=== PATIENT | male | born 1950 | race Caucasian/White ===

== ENCOUNTER 2021-05-30 21:44 | Emergency (ER) | payer OTHER ==
[2021-05-30 21:50] VITALS: BP 150/82; PULSE 72; TEMP 98.6; BMI 34.7
[2021-05-30 23:36] LABS: BASO % 0.7 % (0-2.0); EOS % 3.1 % (0-4.5); HEMATOCRIT 44.3 % (35.4-49); HEMOGLOBIN 15.3 GM/dL (11.7-16.9); LYMPH % 33.9 % (8-40); MCHC 34.6 g/dl (32.0-35.9); MEAN CELL VOLUME 86.7 fl (80-96); MEAN PLT VOLUME 9.3 fl (7.5-11.1); MONO % 9.8 % (3.8-10.2); NEUT % 52.5 % (42.8-82.8); PLATELET COUNT 205 10^3/uL (134-434); RBC 5.11 M/mm3 (4.00-5.60); RDW 14.7 % (11.9-15.9); WHITE BLOOD COUNT 9.2 K/mm3 (4.0-10.0)
[2021-05-30 23:37] LABS: INR 0.94 (0.83-1.09); PROTHROMBIN TIME (PATIENT) 11.5 SEC (9.7-13.0)
[2021-05-30 23:50] LABS: ALBUMIN 3.6 g/dl (3.4-5.0)
[2021-05-30 23:53] LABS: CALCIUM 8.6 mg/dL (8.5-10.1); CREATININE 0.8 mg/dL (0.55-1.3)
[2021-05-30 23:55] LABS: BILIRUBIN,TOTAL 0.4 mg/dL (0.2-1)
[2021-05-31 00:18] LABS: BLOOD UREA NITROGEN 17.9 mg/dL (7-18); TOT PROT 7.1 g/dl (6.4-8.2)
[2021-05-31] MEDS ORDERED: KETOROLAC TROMETHAMINE 30 MG/1 ML VIAL IVPUSH ONE (00:37)
[2021-05-31] MEDS ORDERED: KETOROLAC TROMETHAMINE 30 MG/1 ML VIAL ONE (00:38)
== END 2021-05-31 00:52 | disposition home or self-care (01) ==
LOC: JER 21:44 → JERFT 21:44 → JER 05-31 00:52
PROC: 3E0333Z Introduction of Anti-inflammatory into Peripheral Vein, Percutaneous Approach (ICD-10-PCS; principal; 2021-05-30)
DX: M79.671 Pain in right foot (principal); R22.41 Localized swelling, mass and lump, right lower limb
CPT/HCPCS: 36415; 73610-TC-RT-FY; 73630-TC-RT-FY; 80053; 85025; 85610; 93970-TC; 99285-25

== ENCOUNTER 2021-06-09 20:18 | Inpatient (IN) | payer OTHER ==
[2021-06-09] MEDS ORDERED: oxyCODONE HCL 5 MG TABLET PO ONE (23:29)
[2021-06-09 23:38] LABS: BASO % 1.1 % (0-2.0); EOS % 2.3 % (0-4.5); HEMATOCRIT 42.5 % (35.4-49); HEMOGLOBIN 14.2 GM/dL (11.7-16.9); LYMPH % 24.2 % (8-40); MCH 28.5 pg (25.7-33.7); MCHC 33.3 g/dl (32.0-35.9); MEAN CELL VOLUME 85.5 fl (80-96); MEAN PLT VOLUME 8.3 fl (7.5-11.1); MONO % 9.5 % (3.8-10.2); NEUT % 62.9 % (42.8-82.8); PLATELET COUNT 183 10^3/uL (134-434); RBC 4.97 M/mm3 (4.00-5.60); RDW 14.2 % (11.9-15.9); WHITE BLOOD COUNT 10.3 K/mm3 (4.0-10.0)
[2021-06-09] MEDS ORDERED: oxyCODONE HCL 5 MG TABLET ONE (23:41)
[2021-06-09 23:46] LABS: INR 1.07 (0.83-1.09)
[2021-06-10 00:01] LABS: ALBUMIN 3.6 g/dl (3.4-5.0); BLOOD UREA NITROGEN 14.3 mg/dL (7-18)
[2021-06-10 00:04] LABS: CREATININE 0.9 mg/dL (0.55-1.3)
[2021-06-10 00:05] LABS: BILIRUBIN,TOTAL 0.4 mg/dL (0.2-1)
[2021-06-10] MEDS ORDERED: ENOXAPARIN NA (PORCINE) 80 MG/0.8 ML DISP.SYRIN SQ ONE ×2 (01:52→16:39)
[2021-06-10] MEDS ORDERED: ENOXAPARIN NA (PORCINE) 120 MG/0.8 ML DISP.SYRIN SQ ONE (02:15)
[2021-06-10] MEDS ORDERED: ENOXAPARIN NA (PORCINE) 60 MG/0.6 ML DISP.SYRIN SQ ONE (02:33)
[2021-06-10] MEDS: SODIUM CHLORIDE 1,000 ML IV SCH (02:57)
[2021-06-10] MEDS ORDERED: VANCOMYCIN 1 GM in D5W (PRE-DOCKED) 1,000 MG/250 ML IVPB ONE (03:08)
[2021-06-10] MEDS ORDERED: VANCOMYCIN 1 GRAM (PRE-DOCKED) 1,000 MG/250 ML BAG IVPB ONE ×2 (04:23→04:28)
[2021-06-10] MEDS: ACETAMINOPHEN 325 MG TABLET (FP) PO PRN ×2 (05:45→23:03)
[2021-06-10 07:39] LABS: BASO % 0.7 % (0-2.0); EOS % 2.4 % (0-4.5); HEMATOCRIT 39.6 % (35.4-49); HEMOGLOBIN 13.5 GM/dL (11.7-16.9); LYMPH % 26.8 % (8-40); MCH 29.1 pg (25.7-33.7); MEAN CELL VOLUME 85.5 fl (80-96); MEAN PLT VOLUME 8.5 fl (7.5-11.1); MONO % 10.8 % (3.8-10.2); NEUT % 59.3 % (42.8-82.8); PLATELET COUNT 184 10^3/uL (134-434); RBC 4.64 M/mm3 (4.00-5.60); RDW 14.5 % (11.9-15.9); WHITE BLOOD COUNT 9.9 K/mm3 (4.0-10.0)
[2021-06-10 07:41] LABS: CHLORIDE 107 mmol/L (98-107); SODIUM 140 mmol/L (136-145)
[2021-06-10 07:45] LABS: GLUCOSE,RANDOM 108 mg/dL (74-106)
[2021-06-10 07:49] LABS: ALBUMIN 3.2 g/dl (3.4-5.0); CREATININE 0.9 mg/dL (0.55-1.3); PHOSPHOROUS 2.6 mg/dL (2.5-4.9)
[2021-06-10 07:50] LABS: ANION GAP 7 MMOL/L (8-16); BILIRUBIN,TOTAL 0.4 mg/dL (0.2-1); CO2 26 mmol/L (21-32); TOT PROT 6.6 g/dl (6.4-8.2)
[2021-06-10 07:51] LABS: CALCIUM 8.2 mg/dL (8.5-10.1)
[2021-06-10 07:52] LABS: ALK PHOS 75 U/L (45-117); SGOT/AST 18 U/L (15-37); SGPT/ALT 30 U/L (13-61)
[2021-06-10] MEDS ORDERED: oxyCODONE HCL 5 MG TABLET PO PRN (09:38)
[2021-06-10] MEDS ORDERED: LIDOCAINE 5% TOPICAL PATCH ONE (11:38)
[2021-06-10] MEDS ORDERED: oxyCODONE HCL 5 MG TABLET ONE ×4 (11:38→22:56)
[2021-06-10] MEDS: LIDOCAINE 5% TOPICAL PATCH TP SCH (11:45)
[2021-06-10] MEDS: oxyCODONE HCL 5 MG TABLET PO PRN ×3 (11:46→23:02)
[2021-06-10] MEDS ORDERED: ENOXAPARIN NA (PORCINE) 40 MG/0.4 ML DISP.SYRIN SQ ONE (16:38)
[2021-06-10] MEDS: ENOXAPARIN NA (PORCINE) 120 MG/0.8 ML DISP.SYRIN SQ SCH (16:40)
[2021-06-10 22:34] LABS: URINE APPEARANCE CLEAR; URINE BILIRUBIN NEGATIVE (NEGATIVE); URINE COLOR YELLOW; URINE GLUCOSE (UA) NEGATIVE (NEGATIVE); URINE KETONE NEGATIVE (NEGATIVE); URINE LEUK ESTERASE NEGATIVE (NEGATIVE); URINE NITRITE NEGATIVE (NEGATIVE); URINE PROTEIN NEGATIVE (NEGATIVE)
[2021-06-10] MEDS ORDERED: ACETAMINOPHEN 325 MG TABLET (FP) ONE (22:56)
[2021-06-11 02:59] VITALS: BMI 36.3
[2021-06-11] MEDS: ENOXAPARIN NA (PORCINE) 120 MG/0.8 ML DISP.SYRIN SQ SCH ×3 (03:22→22:48)
[2021-06-11] MEDS: SODIUM CHLORIDE 1,000 ML IV SCH (03:22)
[2021-06-11] MEDS: oxyCODONE HCL 5 MG TABLET PO PRN ×4 (04:58→22:47)
[2021-06-11] MEDS: ACETAMINOPHEN 325 MG TABLET (FP) PO PRN ×2 (05:03→16:02)
[2021-06-11 06:20] LABS: BASO % 0.8 % (0-2.0); EOS % 3.1 % (0-4.5); HEMATOCRIT 39.4 % (35.4-49); HEMOGLOBIN 13.3 GM/dL (11.7-16.9); LYMPH % 22.8 % (8-40); MCH 28.9 pg (25.7-33.7); MCHC 33.7 g/dl (32.0-35.9); MEAN CELL VOLUME 85.8 fl (80-96); MEAN PLT VOLUME 8.4 fl (7.5-11.1); MONO % 10.6 % (3.8-10.2); NEUT % 62.7 % (42.8-82.8); PLATELET COUNT 181 10^3/uL (134-434); RBC 4.59 M/mm3 (4.00-5.60); RDW 14.7 % (11.9-15.9); WHITE BLOOD COUNT 8.9 K/mm3 (4.0-10.0)
[2021-06-11 06:47] LABS: CALCIUM 7.4 mg/dL (8.5-10.1)
[2021-06-11 06:48] LABS: ALBUMIN 2.8 g/dl (3.4-5.0); BLOOD UREA NITROGEN 11.6 mg/dL (7-18)
[2021-06-11 06:51] LABS: CREATININE 0.8 mg/dL (0.55-1.3)
[2021-06-11 06:52] LABS: BILIRUBIN,TOTAL 0.3 mg/dL (0.2-1)
[2021-06-11 06:53] LABS: TOT PROT 5.9 g/dl (6.4-8.2)
[2021-06-11 08:57] LABS: INR 1.01 (0.83-1.09); PROTHROMBIN TIME (PATIENT) 12.4 SEC (9.7-13.0)
[2021-06-11] MEDS ORDERED: POTASSIUM CHLORIDE TABS 20 MEQ TABLET.ER (FP) PO ONE (09:00)
[2021-06-11] MEDS: DULoxetine HCL 30 MG CAPSULE.DR PO SCH (09:42)
[2021-06-11] MEDS: EZETIMIBE 10 MG TABLET (FP) PO SCH (09:42)
[2021-06-11] MEDS ORDERED: oxyCODONE HCL 5 MG TABLET PO PRN (10:18)
[2021-06-11] MEDS: LIDOCAINE PATCH REMOVAL MC SCH ×2 (11:27→22:49)
[2021-06-11] MEDS: WARFARIN NA 10 MG TABLET PO SCH (18:15)
[2021-06-11] MEDS: LIDOCAINE 5% TOPICAL PATCH TP SCH (18:21)
[2021-06-11] MEDS ORDERED: PT OWN MED DRAWER 7, Y5N ONE (22:05)
[2021-06-12] MEDS: oxyCODONE HCL 5 MG TABLET PO PRN ×5 (05:16→22:05)
[2021-06-12 06:30] LABS: BASO % 0.9 % (0-2.0); EOS % 2.9 % (0-4.5); HEMATOCRIT 39.7 % (35.4-49); HEMOGLOBIN 13.3 GM/dL (11.7-16.9); LYMPH % 26.2 % (8-40); MCH 28.7 pg (25.7-33.7); MCHC 33.5 g/dl (32.0-35.9); MEAN CELL VOLUME 85.8 fl (80-96); MEAN PLT VOLUME 8.2 fl (7.5-11.1); MONO % 10.3 % (3.8-10.2); NEUT % 59.7 % (42.8-82.8); PLATELET COUNT 203 10^3/uL (134-434); RBC 4.63 M/mm3 (4.00-5.60); RDW 14.4 % (11.9-15.9); WHITE BLOOD COUNT 8.2 K/mm3 (4.0-10.0)
[2021-06-12 06:46] LABS: INR 1.02 (0.83-1.09); PROTHROMBIN TIME (PATIENT) 12.3 SEC (9.7-13.0)
[2021-06-12 06:54] LABS: CALCIUM 7.9 mg/dL (8.5-10.1)
[2021-06-12 06:55] LABS: BLOOD UREA NITROGEN 8.4 mg/dL (7-18); MAGNESIUM 1.9 mg/dL (1.8-2.4)
[2021-06-12 06:58] LABS: CREATININE 0.7 mg/dL (0.55-1.3)
[2021-06-12 06:59] LABS: BILIRUBIN,TOTAL 0.3 mg/dL (0.2-1)
[2021-06-12 07:00] LABS: TOT PROT 6.2 g/dl (6.4-8.2)
[2021-06-12] MEDS ORDERED: PT OWN MED DRAWER 7, Y5N ONE ×2 (10:00→22:02)
[2021-06-12] MEDS: DULoxetine HCL 30 MG CAPSULE.DR PO SCH (10:03)
[2021-06-12] MEDS: LIDOCAINE 5% TOPICAL PATCH TP SCH (10:04)
[2021-06-12] MEDS: EZETIMIBE 10 MG TABLET (FP) PO SCH (10:04)
[2021-06-12] MEDS: ENOXAPARIN NA (PORCINE) 120 MG/0.8 ML DISP.SYRIN SQ SCH ×2 (10:04→23:17)
[2021-06-12 12:42] LABS: N-TERMINAL BNP 82.9 pg/ml (5-125)
[2021-06-12] MEDS: ACETAMINOPHEN 325 MG TABLET (FP) PO PRN ×2 (14:00→23:17)
[2021-06-12] MEDS: WARFARIN NA 10 MG TABLET PO SCH (18:11)
[2021-06-12] MEDS: LIDOCAINE PATCH REMOVAL MC SCH (22:10)
[2021-06-13] MEDS: oxyCODONE HCL 5 MG TABLET PO PRN ×5 (02:11→20:01)
[2021-06-13 07:24] LABS: BASO % 0.7 % (0-2.0); EOS % 3.8 % (0-4.5); HEMOGLOBIN 12.9 GM/dL (11.7-16.9); MCH 28.7 pg (25.7-33.7); MCHC 33.9 g/dl (32.0-35.9); MEAN CELL VOLUME 84.6 fl (80-96); MEAN PLT VOLUME 8.5 fl (7.5-11.1); MONO % 11.5 % (3.8-10.2); PLATELET COUNT 206 10^3/uL (134-434); RBC 4.49 M/mm3 (4.00-5.60); WHITE BLOOD COUNT 7.1 K/mm3 (4.0-10.0)
[2021-06-13 07:34] LABS: INR 1.07 (0.83-1.09); PROTHROMBIN TIME (PATIENT) 13.2 SEC (9.7-13.0)
[2021-06-13 07:42] LABS: ALBUMIN 3.1 g/dl (3.4-5.0); BLOOD UREA NITROGEN 9.7 mg/dL (7-18); CALCIUM 8.5 mg/dL (8.5-10.1); MAGNESIUM 2.2 mg/dL (1.8-2.4)
[2021-06-13 07:46] LABS: CREATININE 0.8 mg/dL (0.55-1.3)
[2021-06-13 07:47] LABS: BILIRUBIN,TOTAL 0.3 mg/dL (0.2-1)
[2021-06-13] MEDS: DULoxetine HCL 30 MG CAPSULE.DR PO SCH (09:08)
[2021-06-13] MEDS: EZETIMIBE 10 MG TABLET (FP) PO SCH (09:09)
[2021-06-13] MEDS ORDERED: PT OWN MED DRAWER 7, Y5N ONE (09:10)
[2021-06-13] MEDS: ACETAMINOPHEN 325 MG TABLET (FP) PO PRN ×3 (09:15→21:08)
[2021-06-13] MEDS: LIDOCAINE 5% TOPICAL PATCH TP SCH (09:20)
[2021-06-13] MEDS: ENOXAPARIN NA (PORCINE) 120 MG/0.8 ML DISP.SYRIN SQ SCH ×2 (10:12→22:29)
[2021-06-13] MEDS: WARFARIN NA 10 MG TABLET PO SCH (17:45)
[2021-06-13] MEDS: LIDOCAINE PATCH REMOVAL MC SCH (22:34)
[2021-06-14] MEDS: oxyCODONE HCL 5 MG TABLET PO PRN ×5 (00:11→20:10)
[2021-06-14] MEDS: ACETAMINOPHEN 325 MG TABLET (FP) PO PRN ×3 (04:51→22:19)
[2021-06-14] MEDS: LIDOCAINE 5% TOPICAL PATCH TP SCH (09:53)
[2021-06-14] MEDS: DULoxetine HCL 30 MG CAPSULE.DR PO SCH (09:53)
[2021-06-14] MEDS: EZETIMIBE 10 MG TABLET (FP) PO SCH (09:53)
[2021-06-14 11:51] LABS: BASO % 0.9 % (0-2.0); EOS % 3.9 % (0-4.5); HEMATOCRIT 40.6 % (35.4-49); HEMOGLOBIN 13.6 GM/dL (11.7-16.9); LYMPH % 25.8 % (8-40); MCH 28.5 pg (25.7-33.7); MCHC 33.4 g/dl (32.0-35.9); MEAN CELL VOLUME 85.4 fl (80-96); MEAN PLT VOLUME 8.1 fl (7.5-11.1); MONO % 12.2 % (3.8-10.2); NEUT % 57.2 % (42.8-82.8); PLATELET COUNT 235 10^3/uL (134-434); RBC 4.76 M/mm3 (4.00-5.60); RDW 14.3 % (11.9-15.9); WHITE BLOOD COUNT 7.1 K/mm3 (4.0-10.0)
[2021-06-14 11:56] LABS: INR 1.27 (0.83-1.09); PROTHROMBIN TIME (PATIENT) 14.9 SEC (9.7-13.0)
[2021-06-14 12:11] LABS: CALCIUM 8.3 mg/dL (8.5-10.1)
[2021-06-14 12:12] LABS: BLOOD UREA NITROGEN 14.9 mg/dL (7-18); MAGNESIUM 2.3 mg/dL (1.8-2.4)
[2021-06-14 12:15] LABS: CREATININE 0.8 mg/dL (0.55-1.3)
[2021-06-14 12:17] LABS: BILIRUBIN,TOTAL 0.3 mg/dL (0.2-1); TOT PROT 6.4 g/dl (6.4-8.2)
[2021-06-14] MEDS: ENOXAPARIN NA (PORCINE) 120 MG/0.8 ML DISP.SYRIN SQ SCH ×2 (12:21→22:19)
[2021-06-14] MEDS: WARFARIN NA 10 MG TABLET PO SCH (18:14)
[2021-06-14] MEDS ORDERED: PT OWN MED DRAWER 7, Y5N ONE (22:18)
[2021-06-14] MEDS: LIDOCAINE PATCH REMOVAL MC SCH (23:26)
[2021-06-15] MEDS: oxyCODONE HCL 5 MG TABLET PO PRN ×4 (00:22→20:16)
[2021-06-15] MEDS: ACETAMINOPHEN 325 MG TABLET (FP) PO PRN (04:29)
[2021-06-15] MEDS ORDERED: PT OWN MED DRAWER 7, Y5N ONE (09:01)
[2021-06-15] MEDS: EZETIMIBE 10 MG TABLET (FP) PO SCH (09:04)
[2021-06-15] MEDS: DULoxetine HCL 30 MG CAPSULE.DR PO SCH (09:04)
[2021-06-15] MEDS: ENOXAPARIN NA (PORCINE) 120 MG/0.8 ML DISP.SYRIN SQ SCH (09:06)
[2021-06-15] MEDS: LIDOCAINE 5% TOPICAL PATCH TP SCH (09:26)
[2021-06-15 10:38] LABS: BASO % 0.8 % (0-2.0); EOS % 4.4 % (0-4.5); HEMATOCRIT 39.5 % (35.4-49); HEMOGLOBIN 13.4 GM/dL (11.7-16.9); LYMPH % 28.8 % (8-40); MCH 28.9 pg (25.7-33.7); MCHC 33.8 g/dl (32.0-35.9); MEAN CELL VOLUME 85.3 fl (80-96); MEAN PLT VOLUME 8.3 fl (7.5-11.1); MONO % 10.9 % (3.8-10.2); NEUT % 55.1 % (42.8-82.8); PLATELET COUNT 259 10^3/uL (134-434); RBC 4.63 M/mm3 (4.00-5.60); RDW 14.3 % (11.9-15.9); WHITE BLOOD COUNT 6.5 K/mm3 (4.0-10.0)
[2021-06-15 10:45] LABS: INR 1.65 (0.83-1.09); PROTHROMBIN TIME (PATIENT) 18.6 SEC (9.7-13.0)
[2021-06-15 10:50] LABS: CALCIUM 8.1 mg/dL (8.5-10.1)
[2021-06-15 10:51] LABS: ALBUMIN 2.9 g/dl (3.4-5.0); MAGNESIUM 1.9 mg/dL (1.8-2.4)
[2021-06-15 10:54] LABS: CREATININE 0.8 mg/dL (0.55-1.3)
[2021-06-15 10:56] LABS: BILIRUBIN,TOTAL 0.3 mg/dL (0.2-1); TOT PROT 6.2 g/dl (6.4-8.2)
[2021-06-15] MEDS ORDERED: oxyCODONE HCL 5 MG TABLET PO PRN (12:56)
[2021-06-15] MEDS: ACETAMINOPHEN 500 MG TABLET (FP) PO SCH ×2 (13:30→21:23)
[2021-06-15] MEDS: CYCLOBENZAPRINE HCL 10 MG TABLET (FP) PO SCH ×2 (13:30→21:23)
[2021-06-15] MEDS: GABAPENTIN 300 MG CAPSULE PO SCH ×2 (13:30→21:23)
[2021-06-15] MEDS: DOCUSATE SODIUM 100 MG CAPSULE (FP) PO SCH ×2 (13:35→21:22)
[2021-06-15] MEDS: APIXABAN 5 MG TABLET PO SCH (21:22)
[2021-06-15] MEDS: LIDOCAINE PATCH REMOVAL MC SCH (22:42)
[2021-06-16] MEDS: oxyCODONE HCL 5 MG TABLET PO PRN ×4 (03:16→22:12)
[2021-06-16] MEDS: DOCUSATE SODIUM 100 MG CAPSULE (FP) PO SCH ×3 (06:06→23:03)
[2021-06-16] MEDS: CYCLOBENZAPRINE HCL 10 MG TABLET (FP) PO SCH ×3 (06:07→22:12)
[2021-06-16] MEDS: ACETAMINOPHEN 500 MG TABLET (FP) PO SCH (06:07)
[2021-06-16] MEDS: GABAPENTIN 300 MG CAPSULE PO SCH ×3 (06:07→22:11)
[2021-06-16 07:32] LABS: BASO % 0.7 % (0-2.0); EOS % 3.9 % (0-4.5); HEMATOCRIT 42.5 % (35.4-49); HEMOGLOBIN 14.2 GM/dL (11.7-16.9); LYMPH % 31.1 % (8-40); MCH 28.5 pg (25.7-33.7); MCHC 33.4 g/dl (32.0-35.9); MEAN CELL VOLUME 85.5 fl (80-96); MEAN PLT VOLUME 8.3 fl (7.5-11.1); MONO % 9.9 % (3.8-10.2); NEUT % 54.4 % (42.8-82.8); PLATELET COUNT 269 10^3/uL (134-434); RBC 4.97 M/mm3 (4.00-5.60); RDW 14.1 % (11.9-15.9); WHITE BLOOD COUNT 7.2 K/mm3 (4.0-10.0)
[2021-06-16 07:49] LABS: ALBUMIN 3.1 g/dl (3.4-5.0); BLOOD UREA NITROGEN 15.8 mg/dL (7-18); CALCIUM 8.9 mg/dL (8.5-10.1); MAGNESIUM 2.1 mg/dL (1.8-2.4)
[2021-06-16 07:53] LABS: BILIRUBIN,TOTAL 0.5 mg/dL (0.2-1); CREATININE 0.7 mg/dL (0.55-1.3)
[2021-06-16 07:54] LABS: TOT PROT 6.5 g/dl (6.4-8.2)
[2021-06-16] MEDS: APIXABAN 5 MG TABLET PO SCH ×2 (09:52→22:11)
[2021-06-16] MEDS: DULoxetine HCL 30 MG CAPSULE.DR PO SCH (09:53)
[2021-06-16] MEDS: EZETIMIBE 10 MG TABLET (FP) PO SCH (09:53)
[2021-06-16] MEDS: LIDOCAINE 5% TOPICAL PATCH TP SCH ×2 (09:58→10:00)
[2021-06-16 15:52] LABS: BILIRUBIN,DIRECT 0.1 mg/dL (0.0-0.2)
[2021-06-16 20:10] LABS: ALBUMIN 3.2 g/dl (3.4-5.0)
[2021-06-16 20:12] LABS: BILIRUBIN,DIRECT 0.1 mg/dL (0.0-0.2)
[2021-06-16 20:15] LABS: BILIRUBIN,TOTAL 0.1 mg/dL (0.2-1); TOT PROT 6.6 g/dl (6.4-8.2)
[2021-06-16] MEDS: LIDOCAINE PATCH REMOVAL MC SCH (22:13)
[2021-06-17] MEDS: DOCUSATE SODIUM 100 MG CAPSULE (FP) PO SCH ×4 (05:40→21:24)
[2021-06-17] MEDS: GABAPENTIN 300 MG CAPSULE PO SCH ×3 (05:41→13:59)
[2021-06-17] MEDS: CYCLOBENZAPRINE HCL 10 MG TABLET (FP) PO SCH (05:41)
[2021-06-17 07:36] LABS: CALCIUM 8.6 mg/dL (8.5-10.1)
[2021-06-17 07:37] LABS: ALBUMIN 3.4 g/dl (3.4-5.0); BLOOD UREA NITROGEN 15.7 mg/dL (7-18); MAGNESIUM 2.2 mg/dL (1.8-2.4)
[2021-06-17 07:41] LABS: CREATININE 0.8 mg/dL (0.55-1.3)
[2021-06-17 07:42] LABS: BILIRUBIN,TOTAL 0.2 mg/dL (0.2-1)
[2021-06-17 07:49] LABS: BASO % 0.8 % (0-2.0); EOS % 3.1 % (0-4.5); HEMATOCRIT 42.3 % (35.4-49); HEMOGLOBIN 14.6 GM/dL (11.7-16.9); MCH 29.3 pg (25.7-33.7); MCHC 34.4 g/dl (32.0-35.9); MEAN CELL VOLUME 85.3 fl (80-96); MEAN PLT VOLUME 8.5 fl (7.5-11.1); MONO % 9.1 % (3.8-10.2); PLATELET COUNT 310 10^3/uL (134-434); RBC 4.96 M/mm3 (4.00-5.60); RDW 14.3 % (11.9-15.9); WHITE BLOOD COUNT 9.7 K/mm3 (4.0-10.0)
[2021-06-17] MEDS: oxyCODONE HCL 5 MG TABLET PO PRN ×3 (08:46→20:57)
[2021-06-17] MEDS: EZETIMIBE 10 MG TABLET (FP) PO SCH (10:48)
[2021-06-17] MEDS: APIXABAN 5 MG TABLET PO SCH ×2 (10:48→21:23)
[2021-06-17] MEDS: DULoxetine HCL 30 MG CAPSULE.DR PO SCH (10:48)
[2021-06-17] MEDS: LIDOCAINE 5% TOPICAL PATCH TP SCH (10:49)
[2021-06-17 12:13] LABS: BILIRUBIN,DIRECT 0.1 mg/dL (0.0-0.2)
[2021-06-17] MEDS: LIDOCAINE PATCH REMOVAL MC SCH (21:25)
[2021-06-17 21:30] LABS: ALBUMIN 3.5 g/dl (3.4-5.0)
[2021-06-17 21:33] LABS: BILIRUBIN,DIRECT 0.1 mg/dL (0.0-0.2)
[2021-06-17 21:35] LABS: BILIRUBIN,TOTAL 0.2 mg/dL (0.2-1); TOT PROT 7.2 g/dl (6.4-8.2)
[2021-06-18] MEDS: oxyCODONE HCL 5 MG TABLET PO PRN ×4 (03:05→22:23)
[2021-06-18] MEDS: DOCUSATE SODIUM 100 MG CAPSULE (FP) PO SCH ×3 (06:09→22:23)
[2021-06-18 08:01] LABS: INR 1.5 (0.83-1.09); PROTHROMBIN TIME (PATIENT) 16.9 SEC (9.7-13.0)
[2021-06-18 08:02] LABS: EOS % 2.7 % (0-4.5); HEMATOCRIT 39.1 % (35.4-49); HEMOGLOBIN 13.5 GM/dL (11.7-16.9); LYMPH % 27.2 % (8-40); MCH 29.5 pg (25.7-33.7); MCHC 34.6 g/dl (32.0-35.9); MEAN CELL VOLUME 85.3 fl (80-96); MEAN PLT VOLUME 8.3 fl (7.5-11.1); NEUT % 59.1 % (42.8-82.8); PLATELET COUNT 303 10^3/uL (134-434); RBC 4.59 M/mm3 (4.00-5.60); RDW 14.1 % (11.9-15.9); WHITE BLOOD COUNT 8.8 K/mm3 (4.0-10.0)
[2021-06-18] MEDS: APIXABAN 5 MG TABLET PO SCH ×2 (09:02→22:23)
[2021-06-18] MEDS: EZETIMIBE 10 MG TABLET (FP) PO SCH (09:02)
[2021-06-18] MEDS: DULoxetine HCL 30 MG CAPSULE.DR PO SCH (09:02)
[2021-06-18] MEDS: LIDOCAINE 5% TOPICAL PATCH TP SCH (09:03)
[2021-06-18 11:28] LABS: ALBUMIN 3.2 g/dl (3.4-5.0); BLOOD UREA NITROGEN 16.6 mg/dL (7-18); CALCIUM 8.6 mg/dL (8.5-10.1)
[2021-06-18 11:31] LABS: BILIRUBIN,DIRECT 0.1 mg/dL (0.0-0.2); CREATININE 0.9 mg/dL (0.55-1.3)
[2021-06-18 11:33] LABS: BILIRUBIN,TOTAL 0.4 mg/dL (0.2-1); TOT PROT 6.4 g/dl (6.4-8.2)
[2021-06-18] MEDS ORDERED: oxyCODONE HCL 5 MG TABLET PO ONE (13:01)
[2021-06-18] MEDS: LIDOCAINE PATCH REMOVAL MC SCH (22:26)
[2021-06-19] MEDS: DOCUSATE SODIUM 100 MG CAPSULE (FP) PO SCH ×2 (05:28→14:21)
[2021-06-19] MEDS: oxyCODONE HCL 5 MG TABLET PO PRN ×2 (05:28→11:35)
[2021-06-19 07:46] LABS: BASO % 0.7 % (0-2.0); EOS % 3.4 % (0-4.5); HEMATOCRIT 40.2 % (35.4-49); HEMOGLOBIN 13.6 GM/dL (11.7-16.9); LYMPH % 28.8 % (8-40); MCHC 33.9 g/dl (32.0-35.9); MEAN CELL VOLUME 85.6 fl (80-96); MEAN PLT VOLUME 8.2 fl (7.5-11.1); MONO % 9.9 % (3.8-10.2); NEUT % 57.2 % (42.8-82.8); PLATELET COUNT 311 10^3/uL (134-434); RBC 4.69 M/mm3 (4.00-5.60); WHITE BLOOD COUNT 8.4 K/mm3 (4.0-10.0)
[2021-06-19 08:12] LABS: ALBUMIN 3.3 g/dl (3.4-5.0); BLOOD UREA NITROGEN 15.8 mg/dL (7-18); CALCIUM 9.3 mg/dL (8.5-10.1)
[2021-06-19 08:13] LABS: MAGNESIUM 1.9 mg/dL (1.8-2.4)
[2021-06-19 08:16] LABS: CREATININE 0.8 mg/dL (0.55-1.3)
[2021-06-19 08:17] LABS: BILIRUBIN,TOTAL 0.5 mg/dL (0.2-1); TOT PROT 6.7 g/dl (6.4-8.2)
[2021-06-19] MEDS: EZETIMIBE 10 MG TABLET (FP) PO SCH (10:06)
[2021-06-19] MEDS: DULoxetine HCL 30 MG CAPSULE.DR PO SCH (10:06)
[2021-06-19] MEDS: APIXABAN 5 MG TABLET PO SCH (10:07)
[2021-06-19] MEDS: LIDOCAINE 5% TOPICAL PATCH TP SCH (10:09)
[2021-06-19 13:46] VITALS: BP 120/90; PULSE 106; TEMP 98
[2021-06-20] LABS: HEPATITIS B SURFACE AG MATERN NON-REACTIVE (NONREACTIVE)
== END 2021-06-19 16:37 | disposition home or self-care (01) | DRG 176 ==
LOC: JER 20:18 → JERBED 06-10 02:01 → J4S 06-11 01:25
PROVIDERS: ADMIT Internal Medicine; ATTEND Nurse Practitioner Acute Care
DX: I26.99 Other pulmonary embolism without acute cor pulmonale (principal); I82.4Z1 Acute embolism and thrombosis of unspecified deep veins of right distal lower extremity; L03.115 Cellulitis of right lower limb; E78.00 Pure hypercholesterolemia, unspecified; M48.00 Spinal stenosis, site unspecified; R60.0 Localized edema; D72.829 Elevated white blood cell count, unspecified; I10 Essential (primary) hypertension; M62.838 Other muscle spasm; E66.9 Obesity, unspecified; Z68.26 Body mass index [BMI] 26.0-26.9, adult; R94.39 Abnormal result of other cardiovascular function study; M79.671 Pain in right foot; R94.5 Abnormal results of liver function studies; M47.816 Spondylosis without myelopathy or radiculopathy, lumbar region; K71.2 Toxic liver disease with acute hepatitis; T42.6X5A Adverse effect of other antiepileptic and sedative-hypnotic drugs, initial encounter; K76.0 Fatty (change of) liver, not elsewhere classified; G62.9 Polyneuropathy, unspecified
CPT/HCPCS: 36415; 71275-TC; 73060-TC-LT-FY; 76705-TC; 80053; 80061; 80076; 81003; 82550; 83036; 83735; 83880; 84100; 84443; 84484; 85025; 85610; 86705; 86706; 86708; 86803; 87340; 87517; 93005; 93010; 93306-TC; 93971-TC; 97116-GP; 97161-GP; 99285-25; C9803; Q9967; U0003; U0005

== ENCOUNTER 2022-04-17 18:37 | Inpatient (IN) | payer OTHER ==
[2022-04-17 21:11] LABS: BASO % 0.4 % (0-2.0); EOS % 1.9 % (0-4.5); HEMATOCRIT 40.2 % (35.4-49); HEMOGLOBIN 13.6 GM/dL (11.7-16.9); LYMPH % 24.4 % (8-40); MCH 28.6 pg (25.7-33.7); MCHC 33.9 g/dl (32.0-35.9); MEAN CELL VOLUME 84.6 fl (80-96); MEAN PLT VOLUME 8.4 fl (7.5-11.1); NEUT % 62.3 % (42.8-82.8); PLATELET COUNT 163 10^3/uL (134-434); RBC 4.75 M/mm3 (4.00-5.60); RDW 16.4 % (11.9-15.9); WHITE BLOOD COUNT 9.3 K/mm3 (4.0-10.0)
[2022-04-17 21:14] LABS: INR 1.6 (0.83-1.09); PROTHROMBIN TIME (PATIENT) 18.5 SEC (9.7-13.0)
[2022-04-17 21:18] LABS: ACTIVATED PTT 34.3 SECONDS (25.2-36.5)
[2022-04-17 21:28] LABS: ALBUMIN 3.6 g/dl (3.4-5.0); BLOOD UREA NITROGEN 12.7 mg/dL (7-18); CALCIUM 8.8 mg/dL (8.5-10.1)
[2022-04-17 21:33] LABS: BILIRUBIN,TOTAL 0.7 mg/dL (0.2-1); TOT PROT 6.8 g/dl (6.4-8.2)
[2022-04-17] MEDS ORDERED: HEPARIN NA (PORCINE) 5,000 UNITS/ML 1ML VIAL IVPUSH PRN (22:05)
[2022-04-17] MEDS ORDERED: HEPARIN - 25,000 UNIT in SODIUM CHLORIDE 495 ML IV SCH (22:15)
[2022-04-17 22:16] LABS: EPI CELLS 12 /uL (0-25.1); HYALINE CASTS 8 /uL (0-3.1); PH,URINE 5.5 (5.0-8.0); URINE APPEARANCE CLOUDY; URINE BACTERIA 10 /uL (0-1359); URINE BILIRUBIN NEGATIVE (NEGATIVE); URINE COLOR DK YELLOW; URINE GLUCOSE (UA) NEGATIVE (NEGATIVE); URINE KETONE 1+ (NEGATIVE); URINE LEUK ESTERASE NEGATIVE (NEGATIVE); URINE NITRITE NEGATIVE (NEGATIVE); URINE PROTEIN TRACE (NEGATIVE); URINE WBC 14 /uL (0-25.8)
[2022-04-17 22:28] LABS: URINE RBC 45 /uL (0-23.9)
[2022-04-17 22:37] LABS: URINE CRYSTALS CALCIUM OXALATE /hpf
[2022-04-18 05:41] VITALS: BMI 34.8
[2022-04-18] MEDS: oxyCODONE HCL 5 MG TABLET PO PRN ×3 (08:29→21:41)
[2022-04-18] MEDS: EZETIMIBE 10 MG TABLET (FP) PO SCH (10:39)
[2022-04-18 12:29] LABS: CALCIUM 8.4 mg/dL (8.5-10.1)
[2022-04-18 12:30] LABS: ALBUMIN 3.1 g/dl (3.4-5.0); BLOOD UREA NITROGEN 14.7 mg/dL (7-18); MAGNESIUM 2.1 mg/dL (1.8-2.4)
[2022-04-18 12:31] LABS: TRIGLYCERIDES 125 mg/dL (0-150)
[2022-04-18 12:32] LABS: CHOLESTEROL 219 mg/dL (50-200); LDL CHOLESTEROL (ONLY SJRH) 156 mg/dL (5-100)
[2022-04-18 12:33] LABS: CREATININE 0.7 mg/dL (0.55-1.3); PHOSPHOROUS 2.8 mg/dL (2.5-4.9)
[2022-04-18 12:34] LABS: BILIRUBIN,TOTAL 0.4 mg/dL (0.2-1); HDL CHOLESTEROL 42 mg/dL (40-60); TOT PROT 6.2 g/dl (6.4-8.2)
[2022-04-18] MEDS: HEPARIN - 25,000 UNIT in SODIUM CHLORIDE 495 ML IV SCH (14:43)
[2022-04-18] MEDS: HEPARIN NA (PORCINE) 5,000 UNITS/ML 1ML VIAL IVPUSH PRN (14:46)
[2022-04-18] MEDS ORDERED: WARFARIN NA 7.5 MG TABLET PO ONE (18:00)
[2022-04-18] MEDS ORDERED: morphine SULFATE 4 MG/ML VIAL IVPUSH PRN (18:12)
[2022-04-18] MEDS ORDERED: WARFARIN NA 5 MG TABLET PO ONE (18:15)
[2022-04-18] MEDS: BISACODYL 10 MG SUPP.RECT PR PRN (23:22)
[2022-04-19] MEDS: oxyCODONE HCL 5 MG TABLET PO PRN ×5 (01:23→23:22)
[2022-04-19 06:44] LABS: INR 1.9 (0.83-1.09)
[2022-04-19] MEDS: HEPARIN NA (PORCINE) 5,000 UNITS/ML 1ML VIAL IVPUSH PRN ×2 (07:52→17:32)
[2022-04-19] MEDS: EZETIMIBE 10 MG TABLET (FP) PO SCH (10:22)
[2022-04-19] MEDS: HEPARIN - 25,000 UNIT in SODIUM CHLORIDE 495 ML IV SCH (15:45)
[2022-04-19 16:07] LABS: HEMATOCRIT 36.1 % (35.4-49); HEMOGLOBIN 12.3 GM/dL (11.7-16.9); MCH 28.5 pg (25.7-33.7); MCHC 34.1 g/dl (32.0-35.9); MEAN CELL VOLUME 83.7 fl (80-96); MEAN PLT VOLUME 8.4 fl (7.5-11.1); PLATELET COUNT 188 10^3/uL (134-434); RBC 4.31 M/mm3 (4.00-5.60); RDW 16.2 % (11.9-15.9); WHITE BLOOD COUNT 7.5 K/mm3 (4.0-10.0)
[2022-04-19] MEDS ORDERED: WARFARIN NA 5 MG TABLET PO ONE (17:00)
[2022-04-19 17:19] LABS: BLOOD UREA NITROGEN 12.9 mg/dL (7-18); CALCIUM 8.5 mg/dL (8.5-10.1)
[2022-04-19 17:20] LABS: ALBUMIN 3.1 g/dl (3.4-5.0); MAGNESIUM 2.3 mg/dL (1.8-2.4)
[2022-04-19 17:23] LABS: CREATININE 0.7 mg/dL (0.55-1.3); PHOSPHOROUS 3.5 mg/dL (2.5-4.9)
[2022-04-19 17:24] LABS: BILIRUBIN,TOTAL 0.2 mg/dL (0.2-1); TOT PROT 6.1 g/dl (6.4-8.2)
[2022-04-20] MEDS: oxyCODONE HCL 5 MG TABLET PO PRN ×3 (05:45→20:49)
[2022-04-20 08:58] LABS: HEMATOCRIT 36.8 % (35.4-49); HEMOGLOBIN 12.4 GM/dL (11.7-16.9); MCH 28.3 pg (25.7-33.7); MCHC 33.7 g/dl (32.0-35.9); MEAN CELL VOLUME 84.1 fl (80-96); MEAN PLT VOLUME 7.7 fl (7.5-11.1); PLATELET COUNT 207 10^3/uL (134-434); RBC 4.37 M/mm3 (4.00-5.60); WHITE BLOOD COUNT 6.7 K/mm3 (4.0-10.0)
[2022-04-20 09:13] LABS: INR 2.42 (0.83-1.09); PROTHROMBIN TIME (PATIENT) 28.1 SEC (9.7-13.0)
[2022-04-20 09:24] LABS: ALBUMIN 2.9 g/dl (3.4-5.0); BLOOD UREA NITROGEN 10.3 mg/dL (7-18); CALCIUM 8.7 mg/dL (8.5-10.1); MAGNESIUM 2.2 mg/dL (1.8-2.4)
[2022-04-20 09:27] LABS: CREATININE 0.7 mg/dL (0.55-1.3); PHOSPHOROUS 3.4 mg/dL (2.5-4.9)
[2022-04-20 09:29] LABS: TOT PROT 6.1 g/dl (6.4-8.2)
[2022-04-20 09:32] LABS: BILIRUBIN,TOTAL 0.6 mg/dL (0.2-1)
[2022-04-20] MEDS: EZETIMIBE 10 MG TABLET (FP) PO SCH (10:43)
[2022-04-20] MEDS: POLYETHYLENE GLYCOL (HEALTHYLAX) 3350 17 GM PACKET PO SCH (15:10)
[2022-04-20] MEDS: HEPARIN - 25,000 UNIT in SODIUM CHLORIDE 495 ML IV SCH (17:14)
[2022-04-20] MEDS: BISACODYL 10 MG SUPP.RECT PR PRN (18:51)
[2022-04-20] MEDS: SENNOSIDES 8.6MG TABLET (FP) PO SCH (21:44)
[2022-04-21] MEDS: oxyCODONE HCL 5 MG TABLET PO PRN ×4 (03:43→20:49)
[2022-04-21 09:29] LABS: HEMATOCRIT 38.2 % (35.4-49); HEMOGLOBIN 13.2 GM/dL (11.7-16.9); INR 2.08 (0.83-1.09); MCH 28.3 pg (25.7-33.7); MCHC 34.4 g/dl (32.0-35.9); MEAN CELL VOLUME 82.3 fl (80-96); MEAN PLT VOLUME 8.1 fl (7.5-11.1); PLATELET COUNT 239 10^3/uL (134-434); PROTHROMBIN TIME (PATIENT) 24.1 SEC (9.7-13.0); RBC 4.65 M/mm3 (4.00-5.60); RDW 15.9 % (11.9-15.9); WHITE BLOOD COUNT 7.2 K/mm3 (4.0-10.0)
[2022-04-21 09:41] LABS: CALCIUM 9.1 mg/dL (8.5-10.1)
[2022-04-21 09:42] LABS: BLOOD UREA NITROGEN 13.4 mg/dL (7-18)
[2022-04-21 09:45] LABS: CREATININE 0.7 mg/dL (0.55-1.3); MAGNESIUM 2.2 mg/dL (1.8-2.4); PHOSPHOROUS 3.9 mg/dL (2.5-4.9)
[2022-04-21 09:47] LABS: BILIRUBIN,TOTAL 0.4 mg/dL (0.2-1); TOT PROT 6.2 g/dl (6.4-8.2)
[2022-04-21] MEDS: POLYETHYLENE GLYCOL (HEALTHYLAX) 3350 17 GM PACKET PO SCH (10:00)
[2022-04-21] MEDS: EZETIMIBE 10 MG TABLET (FP) PO SCH (10:00)
[2022-04-21] MEDS: HEPARIN - 25,000 UNIT in SODIUM CHLORIDE 495 ML IV SCH ×2 (13:36→15:25)
[2022-04-21] MEDS ORDERED: WARFARIN NA 10 MG TABLET PO SCH (18:00)
[2022-04-21] MEDS: BISACODYL 10 MG SUPP.RECT PR PRN (19:40)
[2022-04-21] MEDS: SENNOSIDES 8.6MG TABLET (FP) PO SCH (21:45)
[2022-04-22] MEDS: oxyCODONE HCL 5 MG TABLET PO PRN ×3 (00:34→17:08)
[2022-04-22] MEDS: HEPARIN - 25,000 UNIT in SODIUM CHLORIDE 495 ML IV SCH ×2 (08:13→15:38)
[2022-04-22 09:49] LABS: HEMATOCRIT 37.7 % (35.4-49); MCH 28.6 pg (25.7-33.7); MCHC 34.5 g/dl (32.0-35.9); MEAN PLT VOLUME 7.1 fl (7.5-11.1); PLATELET COUNT 292 10^3/uL (134-434); RBC 4.54 M/mm3 (4.00-5.60); RDW 15.7 % (11.9-15.9); WHITE BLOOD COUNT 7.9 K/mm3 (4.0-10.0)
[2022-04-22 09:54] LABS: INR 1.61 (0.83-1.09); PROTHROMBIN TIME (PATIENT) 18.6 SEC (9.7-13.0)
[2022-04-22 09:56] LABS: ACTIVATED PTT 43.5 SECONDS (25.2-36.5)
[2022-04-22 10:14] LABS: BLOOD UREA NITROGEN 12.2 mg/dL (7-18)
[2022-04-22 10:15] LABS: ALBUMIN 3.1 g/dl (3.4-5.0); MAGNESIUM 2.2 mg/dL (1.8-2.4)
[2022-04-22 10:18] LABS: CREATININE 0.7 mg/dL (0.55-1.3); PHOSPHOROUS 3.3 mg/dL (2.5-4.9)
[2022-04-22 10:19] LABS: BILIRUBIN,TOTAL 0.7 mg/dL (0.2-1); TOT PROT 6.4 g/dl (6.4-8.2)
[2022-04-22] MEDS: EZETIMIBE 10 MG TABLET (FP) PO SCH (10:31)
[2022-04-22] MEDS: POLYETHYLENE GLYCOL (HEALTHYLAX) 3350 17 GM PACKET PO SCH (10:31)
[2022-04-22] MEDS: HEPARIN NA (PORCINE) 5,000 UNITS/ML 1ML VIAL IVPUSH PRN ×2 (10:55→18:37)
[2022-04-22] MEDS ORDERED: HEPARIN NA (PORCINE) 5,000 UNITS/ML 1ML VIAL ONE ×3 (13:09→14:11)
[2022-04-22] MEDS ORDERED: HEPARIN NA (PORCINE) 5,000 UNITS/ML 1ML VIAL SQ ONE (13:40)
[2022-04-22] MEDS ORDERED: LIDOCAINE HCL 1%, 10 MG/ML (20ML VIAL) ONE (13:55)
[2022-04-22] MEDS ORDERED: ALTEPLASE (CATHFLO) 2 MG/2 ML VIAL NR ONE (14:15)
[2022-04-22] MEDS ORDERED: HEPARIN - 25,000 UNIT in SODIUM CHLORIDE 495 ML IV SCH (19:00)
[2022-04-22] MEDS: SENNOSIDES 8.6MG TABLET (FP) PO SCH (22:00)
[2022-04-23] MEDS: oxyCODONE HCL 5 MG TABLET PO PRN ×4 (00:42→22:39)
[2022-04-23] MEDS: HEPARIN NA (PORCINE) 5,000 UNITS/ML 1ML VIAL IVPUSH PRN (03:18)
[2022-04-23 10:14] LABS: BASO % 1.1 % (0-2.0); EOS % 3.4 % (0-4.5); HEMATOCRIT 38.6 % (35.4-49); HEMOGLOBIN 12.7 GM/dL (11.7-16.9); LYMPH % 25.5 % (8-40); MCH 27.8 pg (25.7-33.7); MEAN CELL VOLUME 84.3 fl (80-96); MEAN PLT VOLUME 8.2 fl (7.5-11.1); MONO % 8.3 % (3.8-10.2); NEUT % 61.7 % (42.8-82.8); PLATELET COUNT 315 10^3/uL (134-434); RBC 4.57 M/mm3 (4.00-5.60); RDW 15.8 % (11.9-15.9); WHITE BLOOD COUNT 7.4 K/mm3 (4.0-10.0)
[2022-04-23 10:42] LABS: ALBUMIN 3.2 g/dl (3.4-5.0); BLOOD UREA NITROGEN 14.2 mg/dL (7-18); MAGNESIUM 2.3 mg/dL (1.8-2.4)
[2022-04-23 10:45] LABS: CREATININE 0.6 mg/dL (0.55-1.3); PHOSPHOROUS 3.3 mg/dL (2.5-4.9)
[2022-04-23 10:47] LABS: BILIRUBIN,TOTAL 0.5 mg/dL (0.2-1); TOT PROT 6.5 g/dl (6.4-8.2)
[2022-04-23] MEDS: POLYETHYLENE GLYCOL (HEALTHYLAX) 3350 17 GM PACKET PO SCH (11:03)
[2022-04-23] MEDS: EZETIMIBE 10 MG TABLET (FP) PO SCH (11:03)
[2022-04-23] MEDS ORDERED: LIDOCAINE HCL 1%, 10 MG/ML (20ML VIAL) ONE (12:28)
[2022-04-23] MEDS ORDERED: HEPARIN NA (PORCINE) 5,000 UNITS/ML 1ML VIAL ONE (12:29)
[2022-04-23] MEDS ORDERED: PROPOFOL 20 ML ONE (13:24)
[2022-04-23] MEDS ORDERED: MIDAZOLAM HCL 2 MG/2 ML SINGLE DOSE VIAL ONE (13:24)
[2022-04-23] MEDS ORDERED: DEXMEDETOMIDINE HCL 200 MCG/2 ML IVPB ONE (14:07)
[2022-04-23] MEDS ORDERED: LIDOCAINE HCL 1%, 10 MG/ML (20ML VIAL) NR ONE (14:26)
[2022-04-23] MEDS ORDERED: ALTEPLASE (CATHFLO) 2 MG/2 ML VIAL CVP ONE (14:34)
[2022-04-23] MEDS ORDERED: HEPARIN NA (PORCINE) 5,000 UNITS/ML 1ML VIAL SQ ONE (14:37)
[2022-04-23] MEDS ORDERED: ONDANSETRON 4 MG/2 ML VIAL IVPUSH PRN ×2 (15:32→15:37)
[2022-04-23] MEDS ORDERED: PROMETHAZINE HCL 25 MG/1 ML VIAL IVPUSH PRN (15:32)
[2022-04-23] MEDS: HEPARIN - 25,000 UNIT in SODIUM CHLORIDE 495 ML IV SCH ×2 (15:35→22:00)
[2022-04-23] MEDS ORDERED: BISACODYL 10 MG SUPP.RECT PR PRN (15:37)
[2022-04-23] MEDS ORDERED: HEPARIN NA (PORCINE) 5,000 UNITS/ML 1ML VIAL IVPUSH PRN ×2 (15:37)
[2022-04-23] MEDS ORDERED: LACTATED RINGERS SOLUTION 1,000 ML IV SCH (15:45)
[2022-04-23] MEDS ORDERED: HEPARIN INFUSION - 25,000 UNITS/500 ML INFUS.BAG IVPB ONE (16:25)
[2022-04-23] MEDS: LACTATED RINGERS SOLUTION 1,000 ML IV SCH (18:35)
[2022-04-23] MEDS ORDERED: SENNOSIDES 8.6MG TABLET (FP) PO SCH (22:00)
[2022-04-23 23:12] VITALS: RESP 20
[2022-04-24] MEDS: oxyCODONE HCL 5 MG TABLET PO PRN ×3 (03:00→15:28)
[2022-04-24] MEDS: HEPARIN - 25,000 UNIT in SODIUM CHLORIDE 495 ML IV SCH ×2 (06:00→14:41)
[2022-04-24] MEDS ORDERED: EZETIMIBE 10 MG TABLET (FP) PO SCH (10:00)
[2022-04-24] MEDS ORDERED: POLYETHYLENE GLYCOL (HEALTHYLAX) 3350 17 GM PACKET PO SCH (10:00)
[2022-04-24] MEDS: LACTATED RINGERS SOLUTION 1,000 ML IV SCH (15:45)
[2022-04-24 23:11] VITALS: BP 119/62; PULSE 90; TEMP 98.8
== END 2022-04-24 19:45 | disposition home or self-care (01) | DRG 272 ==
LOC: JER 18:37 → JERBED 20:51 → J8W 04-18 05:43
PROVIDERS: ADMIT Internal Medicine; ATTEND Internal Medicine
PROC: 04CM3ZZ Extirpation of Matter from Right Popliteal Artery, Percutaneous Approach (ICD-10-PCS; 2022-04-23)
PROC: 04CC3ZZ Extirpation of Matter from Right Common Iliac Artery, Percutaneous Approach (ICD-10-PCS; 2022-04-23)
PROC: 067C3ZZ Dilation of Right Common Iliac Vein, Percutaneous Approach (ICD-10-PCS; 2022-04-23)
PROC: 3E03317 Introduction of Other Thrombolytic into Peripheral Vein, Percutaneous Approach (ICD-10-PCS; 2022-04-23)
PROC: 04CK3ZZ Extirpation of Matter from Right Femoral Artery, Percutaneous Approach (ICD-10-PCS; principal; 2022-04-23 13:30)
DX: I82.411 Acute embolism and thrombosis of right femoral vein (principal); I82.431 Acute embolism and thrombosis of right popliteal vein; M79.7 Fibromyalgia; I82.421 Acute embolism and thrombosis of right iliac vein; Z86.711 Personal history of pulmonary embolism; M54.9 Dorsalgia, unspecified; E78.5 Hyperlipidemia, unspecified; Z79.01 Long term (current) use of anticoagulants; M48.00 Spinal stenosis, site unspecified
CPT/HCPCS: 0241U-QW; 36415; 71045-TC-FY; 76000-TC-FY; 80053; 80061; 81003; 82272; 83036; 83735; 84100; 85025; 85027; 85610; 85730; 86850; 86900; 86901; 93005; 93010; 93971; 93971-TC; 93978; 94760; 99285-25; J1644; J2997

== ENCOUNTER 2025-01-20 20:49 | Emergency (ER) | payer OTHER ==
[2025-01-20 21:01] VITALS: BP 118/70; PULSE 93; RESP 18; TEMP 98.1; BMI 36.0
== END 2025-01-20 21:35 | disposition home or self-care (01) ==
LOC: FER 20:49
DX: I80.8 Phlebitis and thrombophlebitis of other sites (principal); M79.631 Pain in right forearm
CPT/HCPCS: 76882-TC-RT-FY; 99284-25